=== PATIENT | male | born 1970 | race Caucasian/White ===

== ENCOUNTER → 2021-03-07 | Outpatient (CLI) | payer OTHER | LOC: RAD 15:27 | DX: M79.2 Neuralgia and neuritis, unspecified (principal); M79.672 Pain in left foot; S93.602A Unspecified sprain of left foot, initial encounter; I73.9 Peripheral vascular disease, unspecified; S92.352A Displaced fracture of fifth metatarsal bone, left foot, initial encounter for closed fracture | CPT/HCPCS: 73630 ==

== ENCOUNTER → 2021-03-14 | Outpatient (CLI) | payer OTHER | LOC: EXRD 15:00 → HEART 5 15:00 → EXRD 15:03 | DX: Z53.9 Procedure and treatment not carried out, unspecified reason (principal) | CPT/HCPCS: 93922; 93925 ==